=== PATIENT | female | born 1950 | race Caucasian/White ===

== ENCOUNTER → 2017-12-04 | Outpatient (CLI) | payer MEDICARE ==
--- NOTE | 2017-12-04 15:26 | US ---
EXAMINATION TYPE: US kidneys/renal and bladder DATE OF EXAM: 12/04/2017 COMPARISON: CT 04/01/2016 CLINICAL HISTORY: R31.9 Hematuria, unspecified. EXAM MEASUREMENTS: Right Kidney: 9.4 x 3.8 x 3.9 cm Left Kidney: 9.1 x 4.9 x 3.8 cm Right Kidney: No hydronephrosis. Lobulated contour. Left Kidney: No hydronephrosis. Cystic area visualized mid pole measuring 1.0 x 1.0 x 1.0 cm. Echoge ling foci visualized 0.6 cm Bladder: wnl Bilateral Jets seen: No There is no evidence for hydronephrosis at this point in time. No masses are identified. The urina ry bladder is anechoic. IMPRESSION: No hydronephrosis or right-sided nephrolithiasis. Nonobstructing 6 mm left renal calculus and benign- appearing 1.0 cm left renal cyst are seen.
== END | disposition home or self-care (01) ==
LOC: RADUSWWP 13:23
PROVIDERS: ATTEND Family Medicine
DX: N20.0 Calculus of kidney (principal); N28.1 Cyst of kidney, acquired
CPT/HCPCS: 76770

== ENCOUNTER 2018-11-12 07:18 | Day surgery (SDC) | payer MEDICARE ==
--- NOTE | 2018-11-11 11:13 | HP ---
HISTORY AND PHYSICAL CHIEF COMPLAINT: Left shoulder pain. HISTORY OF PRESENT ILLNESS: The patient is a 67-year-old, right-hand dominant, retired female who presents with progressive left shoulder pain for the past several years. It has worsened recently. She is having pain with overhead use and at night. She has tried medications in addition to an injection with only partial temporary relief. PAST MEDICAL HISTORY: Significant for hypothyroidism, type 2 diabetes, and hypercholesterolemia. PAST SURGICAL HISTORY: Negative. CURRENT MEDICATIONS: 1. Atorvastatin. 2. Levothyroxine. 3. Metformin. 4. Omeprazole. 5. Oxybutynin. ALLERGIES: She notes allergies to IODINE DYE. FAMILY HISTORY: Significant for stroke, heart disease. SOCIAL HISTORY: Negative for current tobacco or alcohol use. REVIEW OF SYSTEMS: Sixteen-point review of systems otherwise reviewed and is noncontributory. PHYSICAL EXAMINATION: On examination, the patient is approximately 5 feet, 2 inches, 169 pounds of endomorphic habitus. HEENT exam is nonfocal. Neck is supple. On examination of her left shoulder, she is tender about the anterior subacromial space. She has moderate subacromial crepitus. Active range of motion left shoulder forward elevation 130 degrees, external rotation with the arm at side 50 degrees, internal rotation to L2. Motor strength is 5 minus over 5 for abduction and external rotation. Impingement test, Neer test, and Speed tests are positive. Her distal neurovascular exam otherwise appears intact in the left upper extremity. MRI report left shoulder from 05/11/2018 shows increased signal in the supraspinatus insertion. IMPRESSION: 1. Left shoulder impingement with possible partial-thickness rotator cuff tear. 2. Left proximal bicipital tendinosis. RECOMMENDATIONS: I talked to the patient at length regarding her condition along along with treatment options. At this point, she remains quite symptomatic despite conservative measures. After thorough discussion, she opts to proceed with surgery. We will plan to proceed with left shoulder arthroscopic evaluation with possible subacromial decompression, rotator cuff debridement versus repair, and possible biceps tenotomy. Risks and benefits were discussed at length in layman's terms. We will likely perform that as an outpatient procedure. MMODL / IJN: [id number] / MTDD
[~2018-11-12 07:18] MED LIST: DEXAMETHASONE SOD PHOSPHATE 10 MG/ML 1 ML VIAL IV ONE; HYDROmorphone 0.5 MG/0.5 ML SYRINGE IVP PRN; LACTATED RINGERS 1,000 ML IV SCH; LIDOCAINE 1% 20 ML VIAL (10MG/ML) FOR IV START INTRADERMA PRN; MIDAZOLAM 2 MG/2 ML VIAL IV PRN; ONDANSETRON 4 MG/2 ML VIAL IVP ONE; ceFAZolin IN SWFI 2 GM/20 ML SYRINGE IVP ONE; fentaNYL (PF) 50 MCG/ML 2 ML AMP IV PRN
[2018-11-12 08:00] VITALS: TEMP 97
[2018-11-12 08:09] LABS: Glucose,Whole Blood 98 mg/dL (75-99)
[2018-11-12] MEDS ORDERED: DEXAMETHASONE SOD PHOSPHATE 4 MG/ML 1 ML VIAL ONE (09:15)
[2018-11-12] MEDS ORDERED: SUCCINYLCHOLINE CHLORIDE 100 MG/5 ML SYR IV ONE (09:15)
[2018-11-12] MEDS ORDERED: LIDOCAINE 1% INJ 10MG/ML (20 ML MDV) ONE (09:15)
[2018-11-12] MEDS ORDERED: ROPIVACAINE 5 MG/ML 30 ML VIAL ONE (09:15)
[2018-11-12] MEDS ORDERED: MIDAZOLAM 2 MG/2 ML VIAL ONE (09:15)
[2018-11-12] MEDS ORDERED: ROCURONIUM BROMIDE 10 MG/ML 10 ML VIAL IV ONE (09:15)
[2018-11-12] MEDS ORDERED: PROPOFOL 10 MG/ML 20 ML VIAL IV ONE (09:15)
[2018-11-12] MEDS ORDERED: EPINEPHrine (PF) 1 ML in SODIUM CHLORIDE 0.9% IRRIGATIO 3,000 ML IRRIGATION ONE ×8 (09:23)
[2018-11-12] MEDS ORDERED: LACTATED RINGERS 1,000 ML IV ONE ×2 (09:58)
--- NOTE | 2018-11-12 10:54 | P.OP ---
Date of Procedure: 11/12/18 Preoperative Diagnosis: Left shoulder impingement Postoperative Diagnosis: Same in addition to 1 cm rotator cuff tear, high-grade partial-thickness proximal biceps tear, acromioclavicular joint osteoarthrosis Procedure(s) Performed: Left shoulder arthroscopic subacromial decompression/distal clavicular resection/biceps tenotomy/rotator cuff repair Implants: Arthrex 5.5 mm swivel lock anchor 1 Anesthesia: JUAN, regional Surgeon: Carlos Junior Striping Machine Operator #1: Pablo Hankins Estimated Blood Loss (ml): 10 Pathology: none sent Condition: stable Disposition: PACU Indications for Procedure: The patient's a 67-year-old female presents with progressive left shoulder pain despite conservative measures. A discussion of the risks and benefits of operative intervention versus continued conservative measures was made with the patient. She opted to proceed with surgery. Operative risks to include infection, neurovascular injury, development of blood clots, possible tendon rerupture, possible postoperative stiffness, and possible need for subsequent procedures was discussed. Informed consent was obtained. Operative Findings: As below Description of Procedure: The patient was brought to the operating room, and after induction of general anesthesia was placed in a beachchair position. A preoperative interscalene block was placed for postoperative analgesia. I examined the left shoulder. There was no gross block to passive motion or gross glenohumeral instability. The left upper extremity was prepped and draped in normal fashion. The bony outlines the acromion, distal clavicle, and coracoid process were outlined with a skin marker. The glenohumeral joint was inflated with 50 mL of saline utilizing a spinal needle from posterior approach. A posterior portal was made through a 5 mm skin incision 1 cm medial and inferior to the posterior lateral border time. A blunt trocar was used to easily into the joint. Diagnostic arthroscopy was performed. An anterior portal was made just lateral to the coracoid process entering the joint above the subscapularis tendon. The subscapularis tendon appeared to be intact. Anterior labrum was intact. The inferior recess was inspected. The posterior labrum was intact. There was a high-grade partial-thickness tear of the intra-articular portion of the long head of the biceps. It was elected to proceed with release at this point. This was released from the superior labrum with electrocautery and was allowed to retract to the bicipital groove. On inspection the rotator cuff, full- thickness tear involving the anterior aspect the supraspinatus was noted. A lateral portal was made 2 centimeters inferior to the anterior lateral border of the acromion. The rotator cuff was then easily brought back to the greater tuberosity. The soft tissue on the undersurface of the acromion was debrided with a motorized shaver and electrocautery clearly defining the anterior medial and lateral borders as well as the distal clavicle. An anterior inferior acromioplasty was performed with a motorized nick starting anterolateral, then extending this posteriorly, then extending this medially. I converted to a flat acromion and this was verified in the posterior and lateral viewing portals. The distal 4 mm of clavicle was resected with a motorized nick. The greater tuberosity was lightly decorticating with a shaver down to a bleeding bony surface. A #2 fiber tape was passed through the rotator cuff with a scorpion suture passer. A lateral anchor was placed utilizing the appropriate starting awl. The rotator cuff was appropriately tensioned. Good purchase was obtained. Final arthroscopic view showed adequate compression at the footprint. The arthroscope was then removed. The portals were closed with simple 3-0 nylon sutures. A sterile dressing was applied in addition to a sling. The patient was then awoken from general anesthesia and transferred to recovery room in good condition. Blood loss was estimated at 10 mL. No complications were incurred. Sponge and needle counts were correct in the case. Otoniel SCHULTZ assisted and the major components of the case to include arm positioning, anchor placement, and rotator cuff repair.
[2018-11-12 11:14] VITALS: RESP 16
[2018-11-12 11:18] LABS: Glucose,Whole Blood 140 mg/dL (75-99)
[2018-11-12 12:12] VITALS: BP 129/80; PULSE 75
--- NOTE | 2018-11-13 11:48 | P.ONQ ---
Anesthesiology Proc Note - PNB - Peripheral Nerve Block Performed Left Interscalene Single Time Out Performed: Yes Procedure Start Time: Procedure Stop Time: Indication: Acute Post-Operative Pain, Requested by physician Sedation Type: Sedate with meaningful contact maintained Preparation: Sterile Prep Position: Supine Needle Size: 50mm (2") Needle Gauge: 21 Technique: Ultrasound (ropi .5% 30 cc plus dexamethasone 4mg) Blood Aspirated: No Pain Paresthesia on Injection Noted: No Resistance on Injection: Normal Events: Uneventful and Well Tolerated
== END 2018-11-12 12:40 | disposition home or self-care (01) ==
LOC: OR 07:18
PROVIDERS: ATTEND Orthopaedic Surgery
DX: M75.102 Unspecified rotator cuff tear or rupture of left shoulder, not specified as traumatic (principal); S46.112A Strain of muscle, fascia and tendon of long head of biceps, left arm, initial encounter; X58.XXXA Exposure to other specified factors, initial encounter; M19.012 Primary osteoarthritis, left shoulder; E03.9 Hypothyroidism, unspecified; E11.9 Type 2 diabetes mellitus without complications; E78.00 Pure hypercholesterolemia, unspecified; K21.9 Gastro-esophageal reflux disease without esophagitis; E78.5 Hyperlipidemia, unspecified; Z79.84 Long term (current) use of oral hypoglycemic drugs; Z79.82 Long term (current) use of aspirin; Z79.899 Other long term (current) drug therapy; Z91.041 Radiographic dye allergy status; Z88.5 Allergy status to narcotic agent
CPT/HCPCS: 64415; 29826; 29827; 29824; C1713 ×3; J2250; J1100 ×2; J2405; J0171; J2001; J2795; J0330; J2704; J0690

== ENCOUNTER → 2019-03-24 | Outpatient (CLI) | payer MEDICARE ==
[2019-03-24 13:18] LABS: Basophils # (A) 0.1 k/uL (0-0.2); Basophils % (A) 1 %; Eosinophils # (A) 0.2 k/uL (0-0.7); Eosinophils % (A) 3 %; HCT 38.5 % (34.0-46.0); HGB 12.8 gm/dL (11.4-16.0); Lymphocytes # (A) 2.3 k/uL (1.0-4.8); Lymphocytes % (A) 33 %; MCH 27.3 pg (25.0-35.0); MCHC 33.1 g/dL (31.0-37.0); MCV 82.5 fL (80.0-100.0); Mean Platelet Volume 6.8; Monocytes # (A) 0.4 k/uL (0-1.0); Monocytes % (A) 5 %; Neutrophils # (A) 3.9 k/uL (1.3-7.7); Neutrophils % (A) 56 %; Platelet Count 274 k/uL (150-450); RBC 4.67 m/uL (3.80-5.40); RDW 14.1 % (11.5-15.5); WBC 6.9 k/uL (3.8-10.6)
[2019-03-24 13:32] LABS: Potassium 4.6 mmol/L (3.5-5.1)
== END | disposition home or self-care (01) ==
LOC: LABWHC1 12:21
PROVIDERS: ATTEND Orthopaedic Surgery
DX: Z01.812 Encounter for preprocedural laboratory examination (principal); M65.311 Trigger thumb, right thumb
CPT/HCPCS: 36415; 80051; 82947; 85025

== ENCOUNTER 2019-03-29 09:40 | Day surgery (SDC) | payer MEDICARE ==
[2019-03-24 15:54] VITALS: BMI 31.1
--- NOTE | 2019-03-28 09:04 | HP ---
HISTORY AND PHYSICAL CHIEF COMPLAINT: Right thumb pain. HISTORY OF PRESENT ILLNESS: Patient is a 68-year-old, right-hand dominant, retired female who presents with progressive right thumb pain along with locking and catching for the past several months. It has worsened recently. She has tried medications in addition to a previous injection without much relief. The symptoms are worse in the morning. PAST MEDICAL HISTORY: Significant for type 2 diabetes, hypercholesterolemia, and hypothyroidism. PAST SURGICAL HISTORY: Significant for left shoulder arthroscopy. CURRENT MEDICATIONS: 1. Atorvastatin. 2. Levothyroxine. 3. Metformin. 4. Oxybutynin. 5. Omeprazole. ALLERGIES: IODINE DYE. FAMILY HISTORY: Significant for diabetes and stroke. SOCIAL HISTORY: Negative for current tobacco or alcohol use. 16 REVIEW OF SYSTEMS: Otherwise reviewed and is noncontributory. PHYSICAL EXAMINATION: On examination, the patient is approximately 5 foot 2, 169 pounds of endomorphic habitus. HEENT: Exam is nonfocal. NECK: Supple. She is nontender about the right shoulder, elbow and wrist. On examination of her right thumb, she is tender over the oblique aria. She has palpable triggering. She has limited range of motion. Light touch is intact distally. IMPRESSION: 1. Symptomatic right trigger thumb. 2. [id number] diabetes. RECOMMENDATIONS: I talked to the patient at length regarding her condition along with treatment options. At this point, she remains quite symptomatic despite conservative measures. After thorough discussion, she opts to proceed with surgery. We will plan to proceed with right trigger thumb release. We will likely perform that as an outpatient procedure utilizing local anesthetic and IV sedation. MMODL / IJN: [id number] /
[~2019-03-29 09:40] MED LIST changes: +SCOPOLAMINE 1.5MG/72HR PATCH TRANSDERM ONE; -ceFAZolin IN SWFI 2 GM/20 ML SYRINGE IVP ONE; -fentaNYL (PF) 50 MCG/ML 2 ML AMP IV PRN
[2019-03-29 10:03] VITALS: TEMP 97.7
[2019-03-29 10:10] LABS: Glucose,Whole Blood 107 mg/dL (75-99)
[2019-03-29] MEDS ORDERED: PROPOFOL 10 MG/ML 20 ML VIAL IV ONE (10:43)
[2019-03-29] MEDS ORDERED: MIDAZOLAM 2 MG/2 ML VIAL ONE (10:43)
[2019-03-29] MEDS ORDERED: BUPIVACAINE (PF) 0.25% 30 ML VIAL SQ ONE (11:05)
--- NOTE | 2019-03-29 11:21 | P.OP ---
Date of Procedure: 03/29/19 Preoperative Diagnosis: Right trigger thumbsymptomatic Postoperative Diagnosis: Same Procedure(s) Performed: Right trigger thumb release Anesthesia: MAC, local Surgeon: Carlos Junior Estimated Blood Loss (ml): 1 Pathology: none sent Condition: stable Disposition: PACU Indications for Procedure: The patient's a 68-year-old female who presents with progressive right thumb pain and triggering despite conservative measures. A discussion of the risks and benefits of operative intervention versus continued conservative measures was made with patient. She opted to proceed with surgery. Operative risks to include infection, neurovascular injury, possible recurrence of symptoms and need for subsequent procedures was discussed. Informed consent was obtained. Operative Findings: As below Description of Procedure: The patient was brought to the operating room, and after induction of IV sedation the right upper extremity was prepped and draped in a normal fashion. The tourniquet was inflated to 250 mmHg. The proposed incision site was outlined with a skin marker along the volar aspect of the right thumb at the MCP crease. 7 mL of quarter percent plain Marcaine was injected. The skin incision was then made. The skin was incised sharply. Subcu change tissues were divided bluntly. The neurovascular bundles were gently retracted. The oblique aria was then opened proximal to distal fully. The tendon was inspected. There was no nodularity of the flexor tendon. No block to excursion was noted. The wound was irrigated normal saline. The skin was reapproximated with simple 4-0 nylon suture. A sterile dressing was applied. The tourniquet was deflated less than 15 minutes total tourniquet time. The patient was awoken from sedation and transferred to the recovery room in good condition. Blood loss was estimated at 1 mL. No complications were incurred. Sponge and needle counts were correct at the end of the case.
[2019-03-29 11:50] VITALS: BP 108/57; PULSE 55; RESP 18
== END 2019-03-29 12:02 | disposition home or self-care (01) ==
LOC: OR 09:40
PROVIDERS: ATTEND Orthopaedic Surgery
DX: M65.311 Trigger thumb, right thumb (principal); E03.9 Hypothyroidism, unspecified; E78.00 Pure hypercholesterolemia, unspecified; E11.9 Type 2 diabetes mellitus without complications; Z91.041 Radiographic dye allergy status; Z91.013 Allergy to seafood; Z79.890 Hormone replacement therapy; Z79.84 Long term (current) use of oral hypoglycemic drugs; Z79.899 Other long term (current) drug therapy; Z83.3 Family history of diabetes mellitus; Z82.3 Family history of stroke; Z98.890 Other specified postprocedural states
CPT/HCPCS: 26055; J2250; J0690; J2405; J2704

== ENCOUNTER → 2019-11-07 | Outpatient (CLI) | payer MEDICARE, OTHER ==
--- NOTE | 2019-11-07 10:43 | XR ---
EXAMINATION TYPE: XR KUB DATE OF EXAM: 11/07/2019 HISTORY: Seen Comparison: April 30, 2016 Single KUB is submitted for interpretation. Findings: Right renal calculi: None Visualized. Right kidney obscured by overlying bowel content. Right ureteral calculi: None Visualized. Left renal calculi: 5.1 Millimeter calculus left kidney. Previously noted large calculus measuring 2.1 cm is no longer visualized. Left ureteral calculi: None Visualized. Pelvic calcifications: Stable phlebolith right hemipelvis. Bowel gas pattern is unremarkable. No free air. No mass effects. IMPRESSION: 1. 5.1 Millimeter calculus left kidney. Previously noted large calculus measuring 2.1 cm is no lo nger visualized.
== END | disposition home or self-care (01) ==
LOC: RADXRMAIN 09:57
PROVIDERS: ATTEND Urology
DX: N20.0 Calculus of kidney (principal)
CPT/HCPCS: 74018

== ENCOUNTER → 2019-11-09 | Outpatient (CLI) | payer MEDICARE, OTHER ==
--- NOTE | 2019-11-09 09:18 | CT ---
EXAMINATION TYPE: CT abdomen pelvis wo con DATE OF EXAM: 11/09/2019 COMPARISON: April 01, 2016 HISTORY: Microhematuria CT DLP: 904 mGycm Examination of the solid and hollow viscera is limited given the lack of contrast. FINDINGS: LUNG BASES: No evidence for nodule. No evidence for infiltrate. LIVER/GB: The gallbladder is unremarkable. No space-occupying hepatic lesion. PANCREAS: No pancreatic mass identified. No inflammatory process seen. SPLEEN: No evidence for splenomegaly. No intrasplenic lesions seen. ADRENALS: No adrenal nodules identified. No evidence for thickening. KIDNEYS: No evidence for renal mass. Nonobstructing 6 mm calculus lower pole left kidney. No addition al calculi seen.. No hydronephrosis. BOWEL: Appendix has a normal appearance. No evidence of bowel obstruction. No inflammatory process. Lymph nodes: No evidence for adenopathy greater than 1 cm. Abdominal aorta: Atheromatous changes seen. No evidence for aneurysm. Genital organs: No significant abnormality. Other: No significant abnormality. IMPRESSION: NONOBSTRUCTING NEPHROLITHIASIS LEFT KIDNEY.
== END | disposition home or self-care (01) ==
LOC: RADCTMAIN 08:52
PROVIDERS: ATTEND Urology
DX: N20.0 Calculus of kidney (principal); Z91.013 Allergy to seafood
CPT/HCPCS: 74176

== ENCOUNTER → 2023-04-08 | Outpatient (CLI) | payer MEDICARE, OTHER ==
[2023-04-08 22:05] LABS: Basophils # (A) 0.09 X 10*3/uL (0.00-0.10); Basophils % (A) 1.6 %; Eosinophils # (A) 0.01 X 10*3/uL (0.04-0.35); Eosinophils % (A) 0.2 %; HCT 41.5 % (37.2-46.3); HGB 12.9 d/dL (12.0-15.0); Lymphocytes # (A) 1.69 X 10*3/uL (0.90-5.00); Lymphocytes % (A) 29.6 %; MCH 27.4 pg (27.0-32.0); MCHC 31.1 d/dL (32.0-37.0); MCV 88.1 FL (80.0-97.0); Monocytes # (A) 0.56 X 10*3/uL (0.20-1.00); Monocytes % (A) 9.8 %; NRBC Per 100 WBC 0 X 10*3/uL (0.00-0.01); Neutrophils # (A) 3.35 X 10*3/uL (1.80-7.70); Neutrophils % (A) 58.6 %; Platelet Count 312 X 10*3/uL (140-440); RBC 4.71 X 10*6/uL (4.10-5.20); RDW 14.5 % (11.5-14.5); WBC 5.71 X 10*3/uL (4.50-10.00)
[2023-04-09 02:44] LABS: ALT 60 U/L (8-44); AST 35 U/L (13-35); Albumin 4.6 d/dL (3.8-4.9); Albumin/Globulin Ratio 1.84 Ratio (1.60-3.17); Alkaline Phosphatase 119 U/L (41-126); BUN/Creat Ratio 12.46 Ratio (12.00-20.00); Blood Urea Nitrogen 16.2 mg/dL (9.0-27.0); Calcium 9.4 mg/dL (8.7-10.3); Carbon Dioxide 25.2 mmol/L (21.6-31.8); Chloride 104 mmol/L (96-109); Globulin 2.5 d/dL (1.6-3.3); Glucose 94 mg/dL (70-110); Potassium 4.8 mmol/L (3.5-5.5); Sodium 142 mmol/L (135-145); Total Bilirubin <0.2 mg/dL (0.3-1.2); Total Protein 7.1 d/dL (6.2-8.2)
[2023-04-09 03:39] LABS: Appearance,Urine Cloudy (Clear); Bilirubin,Urine Negative (Negative); Blood,Urine Trace (Negative); Color,Urine Yellow (Yellow); Ketones,Urine Negative (Negative); Nitrite,Urine Negative (Negative); Specific Gravity,Urine 1.023 (1.001-1.030)
[2023-04-09 04:17] LABS: Bacteria,Urine None Seen (None Seen); Calcium Oxalate Crystals,Urine Present (None Seen)
== END | disposition home or self-care (01) ==
LOC: LABPAT 13:41
PROVIDERS: ATTEND Urology
DX: Z01.812 Encounter for preprocedural laboratory examination (principal); E11.9 Type 2 diabetes mellitus without complications; N20.0 Calculus of kidney; R31.29 Other microscopic hematuria
CPT/HCPCS: 36415; 80053; 81001; 85025; 86850; 86900; 86901; 87086

== ENCOUNTER → 2023-04-09 | Outpatient (CLI) | payer MEDICARE, OTHER | END | disposition home or self-care (01) | LOC: LABWHC1 14:28 | PROVIDERS: ATTEND Urology | DX: I44.5 Left posterior fascicular block (principal); R94.31 Abnormal electrocardiogram [ECG] [EKG] | CPT/HCPCS: 93005 ==

== ENCOUNTER 2023-04-15 11:33 | Inpatient (IN) | payer MEDICARE, OTHER ==
[2023-04-09 09:34] VITALS: BMI 26.4
--- NOTE | 2023-04-14 18:51 | P.GSHP ---
History of Present Illness H&P Date: 04/14/23 72 yo female who I saw in the office via [place] where she was for a uti and asx left partial staghorn calculous[>2cm]. She was given treatment options and now comes for a left pcnl.. the risks, complications and alternatives have been explained, understood and accepted. - Constitutional Constitutional: Denies chills, Denies fever - EENT Eyes: denies blurred vision, denies pain Ears, nose, mouth and throat: Denies headache, Denies sore throat - Cardiovascular Cardiovascular: Denies chest pain, Denies shortness of breath - Respiratory Respiratory: Denies cough, Denies 7 - Gastrointestinal Gastrointestinal: Denies abdominal pain, Denies diarrhea, Denies nausea, Denies vomiting - Genitourinary (Female) Genitourinary: Denies dysuria, Denies hematuria - Genitourinary (Male) Genitourinary: Denies dysuria, Denies hematuria - Musculoskeletal Musculoskeletal: Denies myalgias - Integumentary Integumentary: Denies pruritus, Denies rash - Neurological Neurological: Denies numbness, Denies weakness - Psychiatric Psychiatric: Denies anxiety, Denies depression - Endocrine Endocrine: Denies fatigue, Denies weight change Past Medical History Past Medical History: Diabetes Mellitus, GERD/Reflux, Hyperlipidemia, Hypertension, Thyroid Disorder Additional Past Medical History / Comment(s): kidney stones, tinnitus, migraines. History of Any Multi-Drug Resistant Organisms: None Reported Past Surgical History: Orthopedic Surgery, Tonsillectomy, Tubal Ligation Additional Past Surgical History / Comment(s): 04/30/16 LEFT NEPHROLITHOTOMY. BILATERAL CATARACTS. Partial thyroidectomy. , left shoulder surgery, trigger thumb. Past Anesthesia/Blood Transfusion Reactions: Motion Sickness, Postoperative Nausea & Vomiting (PONV) Additional Past Anesthesia/Blood Transfusion Reaction / Comment(s): severe PONV Past Psychological History: No Psychological Hx Reported Smoking Status: Never smoker Past Alcohol Use History: None Reported Past Drug Use History: None Reported - Past Family History Father Family Medical History: Cancer Additional Family Medical History / Comment(s): tonsill cancer Mother Family Medical History: CVA/TIA Sister(s) Family Medical History: CVA/TIA Medications and Allergies Home Medications Medication Instructions Recorded Confirmed Type Aspirin [Adult Low Dose Aspirin EC] 81 mg PO DAILY 04/29/16 04/09/23 History Atorvastatin [Lipitor] 10 mg PO QAM 04/29/16 04/09/23 History Levothyroxine Sodium [Synthroid] 50 mcg PO QAM 04/29/16 04/09/23 History Omeprazole 20 mg PO DAILY 04/29/16 04/09/23 History metFORMIN HCL [Glucophage] 500 mg PO DAILY 04/29/16 04/09/23 History Psyllium Husk/Aspartame [Metamucil 1 dose PO DAILY 04/09/23 04/09/23 History Sugar-Free Powder] SUMAtriptan succinate [Imitrex] 25 mg PO ONCE PRN 04/09/23 04/09/23 History amLODIPine [Norvasc] 10 mg PO DAILY 04/09/23 04/09/23 History Allergies Allergy/AdvReac Type Severity Reaction Status Date / Time shellfish derived [Shrimp] Allergy Severe Rash/Hives,swelling, Verified 04/09/23 08:36 "Passed out" iodine Allergy Unknown Verified 04/09/23 08:36 venom-honey bee Allergy Dyspnea Verified 04/09/23 08:36 [bee venom (honey bee)] tramadol AdvReac Nausea & Verified 04/09/23 08:36 Vomiting Surgical - Exam - General well developed, well nourished, no distress - Eyes normal ocular movement, no icteric - ENT no hearing loss, no congestion - Neck no masses, trachea midline - Respiratory normal respiratory effort, clear to auscultation - Abdomen Abdomen: soft, non tender, no guarding, no rigid, no rebound - Integumentary no rash, no abnormal pigmentation - Neurologic no disoriented, no combative - Psychiatric oriented to time, oriented to person, oriented to place, speech is normal, memory intact Results - Imaging CT scan - abdomen: report reviewed, image reviewed CT scan - pelvis: report reviewed, image reviewed Assessment and Plan Assessment: Impression: left large[>2cm] partial staghorn calculous. Multiple medical comorbidities Plan: left PCNL
[~2023-04-15 11:33] MED LIST changes: +AMPICILLIN 1,000 MG in SODIUM CHLORIDE 0.9% 50 ML IVPB PRN; -DEXAMETHASONE SOD PHOSPHATE 10 MG/ML 1 ML VIAL IV ONE; +GENTAMICIN 80 MG in SODIUM CHLORIDE 0.9% 100 ML IVPB PRN; -HYDROmorphone 0.5 MG/0.5 ML SYRINGE IVP PRN; -LACTATED RINGERS 1,000 ML IV SCH; -LIDOCAINE 1% 20 ML VIAL (10MG/ML) FOR IV START INTRADERMA PRN; -MIDAZOLAM 2 MG/2 ML VIAL IV PRN; -SCOPOLAMINE 1.5MG/72HR PATCH TRANSDERM ONE
[2023-04-15] MEDS: LACTATED RINGERS 1,000 ML IV SCH ×2 (12:17→17:41)
[2023-04-15] MEDS ORDERED: DEXAMETHASONE SOD PHOSPHATE 4 MG/ML 1 ML VIAL IVP ONE (12:30)
[2023-04-15] MEDS ORDERED: ONDANSETRON 4 MG/2 ML VIAL ONE (12:32)
--- NOTE | 2023-04-15 12:37 | XR ---
EXAMINATION TYPE: XR KUB DATE OF EXAM: 04/15/2023 COMPARISON: 11/07/2019 HISTORY: Renal stone TECHNIQUE: One view abdominal series FINDINGS: The osseous structures are intact. The bowel gas pattern is nonspecific. Hypertrophic degenerative c hanges of the spine. Mild bilateral hip arthropathy. Vascular calcifications pelvis. 1.6 cm left renal pelvic calcification. IMPRESSION: 1. There is a 1.6 on her left renal pelvic calcification.
[2023-04-15 12:45] LABS: Glucose,Whole Blood 95 mg/dL (70-110)
[2023-04-15] MEDS ORDERED: MIDAZOLAM 2 MG/2 ML VIAL IVP ONE (12:47)
[2023-04-15] MEDS ORDERED: LIDOCAINE 1% INJ 10MG/ML (20 ML MDV) ONE (13:08)
[2023-04-15] MEDS ORDERED: PROPOFOL 10 MG/ML 20 ML VIAL IV ONE (13:08)
[2023-04-15] MEDS ORDERED: NEOSTIGMINE 1 MG/ML 10 ML VIAL ONE (13:08)
[2023-04-15] MEDS ORDERED: MIDAZOLAM 2 MG/2 ML VIAL ONE (13:08)
[2023-04-15] MEDS ORDERED: ROCURONIUM 10 MG/ML (5 ML VIAL) IV ONE (13:08)
[2023-04-15] MEDS ORDERED: SUCCINYLCHOLINE CHLORIDE 200 MG/10 ML VIAL IV ONE (13:08)
[2023-04-15] MEDS ORDERED: GLYCOPYRROLATE 0.2 MG/ML 2 ML VIAL ONE (13:08)
[2023-04-15] MEDS ORDERED: PHENYLEPHRINE-0.9% NACL SYG 1,000 MCG/10 ML SYRINGE ONE (13:08)
[2023-04-15] MEDS ORDERED: fentaNYL (PF) 50 MCG/ML 2 ML AMP ONE (13:08)
[2023-04-15] MEDS ORDERED: IOHEXOL 350 MG/ML 100 ML in EMPTY BAG 1 BAG IRRIGATION ONE (13:42)
[2023-04-15] MEDS ORDERED: SUMAtriptan succinate 25 MG TAB PO PRN (14:17)
[2023-04-15] MEDS ORDERED: MAG HYDROX/AL HYDROX/SIMETH 30 ML CUP PO PRN (14:18)
[2023-04-15] MEDS ORDERED: NALOXONE 0.4 MG/ML 1 ML VIAL IV PRN (14:19)
[2023-04-15] MEDS ORDERED: HYDROmorphone PCA 10 MG/50 ML BAG IV PRN (14:19)
--- NOTE | 2023-04-15 14:23 | P.OP ---
Date of Procedure: 04/15/23 Preoperative Diagnosis: Left renal stone, 1.6 cm Postoperative Diagnosis: Same Procedure(s) Performed: Cystoscopy, placement of occluding balloon catheter left, percutaneous nephrostomy (Dr. Nichols) percutaneous nephrostolithotomy with ultrasound, placement of left 10 J nephrostomy Anesthesia: JUAN Surgeon: Chalo Nichols Estimated Blood Loss (ml): 50 Pathology: other Condition: stable (Stone) Disposition: PACU Indications for Procedure: Patient is 72. She has a 1.6 cm UPJ stone causing pain. She comes for percutaneous nephrostolithotomy. Alternatives have been discussed Description of Procedure: Patient brought to the operating suite. On the transport gladys is given a general anesthetic. She's placed in a frog position with a sterile prep and drape. Cystoscopy identifies a left ureteral orifice which is intubated with a 5-Czech occluding balloon catheter passed up into the left renal pelvis. The cystoscope was removed and it is secured to a 16-Czech Conde The patient's placed in a prone position with care to airways and extremities. A sterile prep and drape was administered. Percutaneous access to a left lower pole calyx is performed by me and will be dictated separately. We dilate the tract to 30-Czech and introduced a 30-Czech working sheath into the collecting system. I introduced the rigid nephroscope into the left renal pelvis where the stone was identified. With ultrasound the left renal pelvic stone is broken down in either graft or suctioned out of the collecting system. After all the stone is been visually removed to pass a flexible nephroscope throughout the collecting system and see no remaining stone. There is no stone seen on fluoroscopy. I then place a 10 J nephrostomy tube. The patient's awake and returned recovery in good condition. Blood loss is 50 mL. She tolerated procedure well be placed in the hospital postoperatively.
--- NOTE | 2023-04-15 14:26 | P.PCN ---
Date of Procedure: 04/15/23 Preoperative Diagnosis: Left renal stone Postoperative Diagnosis: Same Procedure(s) Performed: Left percutaneous access Anesthesia: GETA Surgeon: Chalo Nichols Indications for Procedure: The patient is to undergo a percutaneous nephrostolithotomy for 1.6 cm left renal pelvic stone. I will perform percutaneous access for the surgical procedure Description of Procedure: The patient has been previously anesthetized, and occluding balloon catheter placed and the patient placed in a prone position a Chiba needles passed into a left lower pole calyx after the collecting system was outlined with air introduced through the ureteral catheter. I then introduced a cope mandril wire through the Chiba needle that passes down the ureter. I removed the Chiba needle and pass a 3-Uzbek dilating catheter into the collecting system. I removed the inner sheath and then pass an 035 Super Stiff wire down the ureter. I remove the 3-Uzbek dilating catheter and pass an 8-10-Uzbek reentry catheter. The inner catheters removed and through the outer catheter and 035 safety wires passed down the ureter. I then pass a dilating balloon and dilated the collecting system to 30-Uzbek and introduced a 30-Uzbek sheath into the left renal pelvis.
[2023-04-15] MEDS: HYDROmorphone 0.5 MG/0.5 ML SYRINGE IVP PRN ×3 (14:43→15:00)
[2023-04-15 14:58] LABS: Glucose,Whole Blood 113 mg/dL (70-110)
[2023-04-15] MEDS ORDERED: LACTATED RINGERS 1,000 ML IV ONE (15:12)
--- NOTE | 2023-04-15 15:47 | FL ---
EXAMINATION TYPE: FL Perc Nephrostomy New Access DATE OF EXAM: 04/15/2023 COMPARISON: NONE HISTORY: Left renal stone TECHNIQUE: Fluoroscopy. FINDINGS: Fluoroscopic guidance was provided during procedure performed. Total dose area product (D AP) in uGy*m?, mGy*cm? (or similar): 1 minute 27 seconds. IMPRESSION: As Above.
[2023-04-15 16:35] LABS: Glucose,Whole Blood 136 mg/dL (70-110)
[2023-04-15] MEDS: ONDANSETRON 4 MG/2 ML VIAL IVP PRN (17:41)
[2023-04-15] MEDS: SODIUM CHLORIDE 0.45% 1,000 ML IV SCH (17:49)
[2023-04-15 20:28] LABS: Glucose,Whole Blood 153 mg/dL (70-110)
[2023-04-16 05:55] LABS: Glucose,Whole Blood 115 mg/dL (70-110)
[2023-04-16] MEDS: SODIUM CHLORIDE 0.45% 1,000 ML IV SCH ×2 (06:13→07:54)
[2023-04-16] MEDS: LEVOTHYROXINE 50 MCG TAB PO SCH (06:24)
[2023-04-16] MEDS: PANTOPRAZOLE 40 MG TABLET PO SCH (06:24)
--- NOTE | 2023-04-16 06:53 | P.PN ---
Subjective Progress Note Date: 04/16/23 The patient is in her first postoperative day from a left percutaneous nephrostolithotomy. She did have some blood clots in the bladder requiring irrigation. She feels well. He wishes to stay in the hospital another 24 hours that she lives by herself. I will discontinue her Conde ambulate the patient. If she feels well she can be discharged home tomorrow. Objective - Vital Signs Vital signs: Vital Signs Temp 97.1 F L 04/15/23 19:17 Pulse 54 L 04/15/23 19:17 Resp 17 04/15/23 19:17 BP 110/71 04/15/23 19:17 Pulse Ox 95 04/15/23 19:17 FiO2 21 04/15/23 16:47 Intake & Output 04/15/23 04/15/23 04/16/23 06:59 18:59 06:59 Intake Total 1428 Output Total 250 1550 Balance 1178 -1550 Weight 63.1 kg Intake: IV 1203 Intake, IV Titration 225 Amount Sodium Chloride 0.45% 1, 225 000 ml @ 75 mls/hr IV . [id number] [facility] Rx#:[id number] Output: Drainage 400 Left left flank 400 Urine 200 1150 Estimated Blood Loss 50 Other: Voiding Method Indwelling Catheter - Labs Labs: Abnormal Lab Results - Last 24 Hours (Table) 04/15/23 04/15/23 04/15/23 Range/Units 14:57 16:33 20:26 POC Glucose (mg/dL) 113 H 136 H 153 H (70-110) mg/dL 04/16/23 Range/Units 05:52 POC Glucose (mg/dL) 115 H (70-110) mg/dL Assessment and Plan Assessment: Impression: Left percutaneous nephrostolithotomy. recommendations: continue with nephrostomy tube IV fluids discontinue Conde patient be discharged home tomorrow
[2023-04-16] MEDS: metFORMIN 500 MG TAB PO SCH (09:24)
[2023-04-16] MEDS: amLODIPine 10 MG TAB PO SCH (09:24)
[2023-04-16] MEDS: ATORVASTATIN 10 MG TAB PO SCH (09:24)
[2023-04-16] MEDS: ONDANSETRON 4 MG/2 ML VIAL IVP PRN ×2 (11:29→17:39)
[2023-04-16 11:30] LABS: Glucose,Whole Blood 111 mg/dL (70-110)
[2023-04-16] MEDS: LACTATED RINGERS 1,000 ML IV SCH (12:58)
[2023-04-16 16:27] LABS: Glucose,Whole Blood 110 mg/dL (70-110)
[2023-04-16 20:08] LABS: Glucose,Whole Blood 110 mg/dL (70-110)
[2023-04-16] MEDS: ACETAMINOPHEN TAB 325 MG TAB PO PRN (23:00)
[2023-04-17 05:45] LABS: Glucose,Whole Blood 94 mg/dL (70-110)
[2023-04-17] MEDS: PANTOPRAZOLE 40 MG TABLET PO SCH (06:14)
[2023-04-17] MEDS: LEVOTHYROXINE 50 MCG TAB PO SCH (06:14)
[2023-04-17] MEDS: ACETAMINOPHEN TAB 325 MG TAB PO PRN (06:14)
[2023-04-17] MEDS: SODIUM CHLORIDE 0.45% 1,000 ML IV SCH (06:16)
--- NOTE | 2023-04-17 07:19 | P.DS ---
Providers Date of admission: 04/16/23 13:22 Attending physician: Chalo Nichols Primary care physician: Stated None Hospital Course: The patient was admitted to the hospital 04/15/2023 for a left percutaneous nephrostolithotomy. She underwent this without difficulty. Her postoperative course was uneventful. Her catheter and IV were removed. She tolerated a regular diet. She voided without difficulty. Her pain is under control. The urine in the nephrostomy tube is cleared. He'll be discharged home today. She'll follow-up in the office next week for nephrostomy tube removal. She has pain medicine at home. Postoperative instructions been given. Condition is good. Patient Condition at Discharge: Good Plan - Discharge Summary Discharge Rx Participant: No New Discharge Prescriptions: No Action Atorvastatin [Lipitor] 10 mg PO QAM Omeprazole 20 mg PO DAILY Levothyroxine Sodium [Synthroid] 50 mcg PO QAM metFORMIN HCL [Glucophage] 500 mg PO DAILY Aspirin [Adult Low Dose Aspirin EC] 81 mg PO DAILY amLODIPine [Norvasc] 10 mg PO DAILY SUMAtriptan succinate [Imitrex] 25 mg PO ONCE PRN PRN Reason: Migraine Headache Psyllium Husk/Aspartame [Metamucil Sugar-Free Powder] 1 dose PO DAILY Discharge Medication List Aspirin [Adult Low Dose Aspirin EC] 81 mg PO DAILY 04/29/16 [History] Atorvastatin [Lipitor] 10 mg PO QAM 04/29/16 [History] Levothyroxine Sodium [Synthroid] 50 mcg PO QAM 04/29/16 [History] Omeprazole 20 mg PO DAILY 04/29/16 [History] metFORMIN HCL [Glucophage] 500 mg PO DAILY 04/29/16 [History] Psyllium Husk/Aspartame [Metamucil Sugar-Free Powder] 1 dose PO DAILY 04/09/23 [History] SUMAtriptan succinate [Imitrex] 25 mg PO ONCE PRN 04/09/23 [History] amLODIPine [Norvasc] 10 mg PO DAILY 04/09/23 [History] Follow up Appointment(s)/Referral(s): Chalo Nichols MD [STAFF PHYSICIAN] - 04/20/23 (Attention should have a previously scheduled appointment on Thursday or Thursday next week please keep home with nephrostomy tube. Please instruct) Discharge Disposition: HOME SELF-CARE
[2023-04-17] MEDS: ATORVASTATIN 10 MG TAB PO SCH (08:38)
[2023-04-17] MEDS: metFORMIN 500 MG TAB PO SCH (08:38)
[2023-04-17] MEDS: amLODIPine 10 MG TAB PO SCH (08:38)
[2023-04-17 08:49] VITALS: BP 109/60; PULSE 68; RESP 17; TEMP 98.2
[2023-04-17 11:08] LABS: Glucose,Whole Blood 136 mg/dL (70-110)
== END 2023-04-17 12:09 | disposition home or self-care (01) | DRG 661 ==
LOC: OR 11:33 → 4SSUR 14:11 → OR 04-16 13:22
PROVIDERS: ADMIT Urology; ATTEND Urology
PROC: 0TJB8ZZ Inspection of Bladder, Via Natural or Artificial Opening Endoscopic (ICD-10-PCS; principal; 2023-04-15 13:30)
PROC: 0TC44ZZ Extirpation of Matter from Left Kidney Pelvis, Percutaneous Endoscopic Approach (ICD-10-PCS; principal; 2023-04-15 13:30)
PROC: 0T9430Z Drainage of Left Kidney Pelvis with Drainage Device, Percutaneous Approach (ICD-10-PCS; principal; 2023-04-15 13:30)
DX: N20.0 Calculus of kidney (principal); E11.9 Type 2 diabetes mellitus without complications; E78.5 Hyperlipidemia, unspecified; I10 Essential (primary) hypertension; E07.9 Disorder of thyroid, unspecified; N32.89 Other specified disorders of bladder; K21.9 Gastro-esophageal reflux disease without esophagitis; Z79.899 Other long term (current) drug therapy; Z79.890 Hormone replacement therapy; Z79.84 Long term (current) use of oral hypoglycemic drugs; Z79.82 Long term (current) use of aspirin; Z87.440 Personal history of urinary (tract) infections; Z91.041 Radiographic dye allergy status; Z88.5 Allergy status to narcotic agent
CPT/HCPCS: 50432; 74018; 82365; 94760